=== PATIENT | female | born 2000 | race American Indian/Alaskan Native ===

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

== ENCOUNTER 2021-09-19 00:59 | Emergency (ER) | payer MEDICAID ==
[2021-09-19 01:14] VITALS: BP 124/73
--- NOTE | 2021-09-19 01:35 | Emergency Department Report ---
ED General Adult HPI - General Chief complaint: Sore Throat Stated complaint: SORE THROAT Time Seen by Provider: 09/19/21 01:22 Source: patient Mode of arrival: Ambulatory Limitations: No Limitations - History of Present Illness Initial comments: 21-year-old female patient presents to the emergency department with complaints of sore throat for 5 days. No known sick contacts. No current steroid or antibiotic use. No recent travel. No associated symptoms. Denies fever, chills, cough, congestion, dysphagia, hoarseness. Denies all other complaints at this time. - Related Data Previous Rx's Medication Instructions Recorded Last Taken Type Nitrofurantoin [place]/M-Cryst 100 mg PO Q12HR 5 Days #10 capsule 03/13/18 Unknown Rx [Macrobid CAP] Vit No.130/Iron/Folic 1 each PO QAM 30 Days #30 tablet 03/13/18 Unknown Rx [ Tablet] Nystas/Diphen/Xyl Visc/Mylanta 30 ml MM Q4H PRN #1 bottle 09/19/21 Unknown Rx [Magic Mouthwash] Penicillin Vk [Veetids TAB] 500 mg PO BID 10 Days tablet 09/19/21 Unknown Rx Allergies Allergy/AdvReac Type Severity Reaction Status Date / Time No Known Allergies Allergy Unverified 03/12/18 20:42 ED Review of Systems ROS: Stated complaint: SORE THROAT Other details as noted in HPI Other: GENERAL: Negative for fever. ENT: Positive for sore throat. CARDIOVASCULAR: Negative for chest pain. PULMONARY: Negative for shortness of breath. GASTROINTESTINAL: Negative for abdominal pain. MUSCULOSKELETAL: Negative for back pain. NEUROLOGICAL: Negative for headache. INTEGUMENTARY: Negative for rash. ED Past Medical Hx - Past Medical History Previous Medical History?: Yes Additional medical history: Anemia - Surgical History Past Surgical History?: No - Social History Smoking Status: Never Smoker Substance Use Type: None - Medications Home Medications: Home Medications Medication Instructions Recorded Confirmed Last Taken Type Nitrofurantoin [place]/M-Cryst 100 mg PO Q12HR 5 Days #10 capsule 03/13/18 Unknown Rx [Macrobid CAP] Vit No.130/Iron/Folic 1 each PO QAM 30 Days #30 tablet 03/13/18 Unknown Rx [ Tablet] Nystas/Diphen/Xyl Visc/Mylanta 30 ml MM Q4H PRN #1 bottle 09/19/21 Unknown Rx [Magic Mouthwash] Penicillin Vk [Veetids TAB] 500 mg PO BID 10 Days tablet 09/19/21 Unknown Rx ED Physical Exam - General Limitations: No Limitations - Other Other exam information: General: Awake, appropriately interactive, no acute distress. ENT: Pharyngeal erythema with bilateral tonsillar swelling, minimal exudate. Uvula is midline and nonedematous. Airway is patent. Neck: Supple. Full range of motion intact. No cervical lymphadenopathy. Cardiovascular: Normal peripheral perfusion. Pulmonary: No respiratory distress. Patient is speaking normally without use of accessory muscles. Skin: No apparent rashes or lesions. Neurological: No facial asymmetry. Speech is clear. Follows commands. Patient is alert and oriented. Musculoskeletal: Moves all four extremities spontaneously with normal range of motion. Psych: Cooperative. Appropriate mood and affect. ED Course Vital Signs 09/19/21 01:08 Temperature 98.0 F Pulse Rate 80 Respiratory 16 Rate Blood Pressure 124/73 O2 Sat by Pulse 100 Oximetry ED Medical Decision Making - Medical Decision Making Differential diagnosis including but not limited to: strep pharyngitis, viral pharyngitis, peritonsillar abscess, epiglottitis, Valdez's angina, mononucleosis, otitis media, allergic rhinitis On reevaluation, patient remains stable. No hypoxia, no respiratory distress. Rapid strep test is positive. Patient will be discharged home with prescription for Penicillin and appropriate analgesics. Instructed to follow-up with primary care provider. Patient expressed understanding and is agreeable to plan of care. Disease transmission precautions discussed. Strict return precautions provided. MDM History, exam, diagnostic testing, and current condition do not suggest worrisome pathology to warrant further testing, continued ED treatment, admission, or surgical evaluation at this point. Given the low probability of a significant medical illness, it would be more likely to result in harm than benefit to perform further testing at this stage. Discussed findings, presumptive diagnosis, need for follow-up and specific signs/symptoms that should prompt immediate return to the emergency department. Instructions were explained in detail to the patient in addition to giving written discharge information. Patient expressed understanding and was given the opportunity to ask questions, all of which were satisfactorily answered prior to discharge home. Critical care attestation.: If time is entered above; I have spent that time in minutes in the direct care of this critically ill patient, excluding procedure time. ED Disposition Clinical Impression: Strep pharyngitis Disposition: HOME / SELF CARE / HOMELESS Is pt being admited?: No Does the pt Need Aspirin: No Condition: Stable Instructions: Strep Throat, Adult Additional Instructions: Take Tylenol every 4 hours and Motrin every 8 hours as needed for pain. Take Penicillin with food as directed until complete. Use Magic Mouthwash as needed for sore throat. Use Cepacol lozenges and salt water gargles as needed for sore throat. Rest. Drink plenty of fluids. Wash hands frequently to prevent disease transmission. Do not share food or drinks with others. Follow-up with primary care provider this week. Call today to schedule an appointment. See referral information below. Return to the emergency department immediately for new or worsening symptoms. Prescriptions: Nystas/Diphen/Xyl Visc/Mylanta [Magic Mouthwash] 30 ml MM Q4H PRN #1 bottle PRN Reason: Mouth Pain Penicillin Vk [Veetids TAB] 500 mg PO BID 10 Days tablet Referrals: EDVIN REDDING MD [Staff Physician] - 3-5 Days [facility] [Provider Group] - 3-5 Days Forms: Work/School Release Form(ED) Time of Disposition: 02:23
== END 2021-09-19 02:58 | disposition home or self-care (01) ==
LOC: ED 00:59
DX: J02.0 Streptococcal pharyngitis (principal); D64.9 Anemia, unspecified
CPT/HCPCS: 87430; 99283